=== PATIENT | male | born 1975 | race African-American/Black ===

== ENCOUNTER 2019-11-17 15:00 | Outpatient (CLI) | payer MEDICARE | END 2019-11-17 15:01 | disposition home or self-care (01) | LOC: DTY/OP 15:00 | PROVIDERS: ATTEND Family Medicine | DX: E11.9 Type 2 diabetes mellitus without complications (principal); I11.0 Hypertensive heart disease with heart failure; I50.20 Unspecified systolic (congestive) heart failure; D64.9 Anemia, unspecified; E78.5 Hyperlipidemia, unspecified; E66.01 Morbid (severe) obesity due to excess calories; E87.6 Hypokalemia; R73.03 Prediabetes; Z68.44 Body mass index [BMI] 60.0-69.9, adult; Z68.43 Body mass index [BMI] 50.0-59.9, adult | CPT/HCPCS: 97802 ==

== ENCOUNTER 2020-12-07 11:04 | Inpatient (IN) | payer MEDICARE ==
[2020-12-07] MEDS ORDERED: Nitroglycerin 2% Ointment 1 INCH/1 GM Packet ONE (11:26)
[2020-12-07] MEDS ORDERED: Furosemide 40 MG/4 ML VIAL ONE (11:26)
[2020-12-07 11:36] LABS: #Eosinphils 0.3 thou/uL (0.0-0.7); #Lymphocytes 1.6 thou/uL (1.20-3.40); #Monocytes 0.5 thou/uL (0.11-0.59); #Neutrophils 5.3 thou/uL (1.40-6.50); %Eosinophils 3.7 % (0.0-10.0); %Lymphocytes 20.8 % (21.0-51.0); %Monocytes 6.4 % (0.0-10.0); %Neutrophils 69.1 % (42.0-75.0); Hemoglobin 11.7 g/dL (14.0-18.0); Mean Corpuscular HGB CONC 30.5 g/dL (32.0-36.0); Mean Corpuscular Hemoglobin 24.5 pg (27.0-31.0); Mean Corpuscular Volume 80.2 fL (78.0-98.0); Mean Platelet Volume 8.5 fL (7.4-10.4); Platelet Count 304 thou/uL (130-400); RBC Distribution Width 14.8 % (11.5-14.5); Red Blood Cell (RBC) Count 4.78 mill/uL (4.70-6.10); White Blood Cell (WBC) Count 7.6 thou/uL (4.8-10.8)
[2020-12-07 12:04] LABS: ALT (SGPT) 9 U/L (8-55); AST (SGOT) 10 U/L (5-34); Albumin 3.7 g/dL (3.5-5.0); Alkaline Phosphatase 103 U/L (40-110); Anion Gap 14 mmol/L (10-20); BUN (Urea Nitrogen) 7 mg/dL (8.9-20.6); Bilirubin, Total 0.5 mg/dL (0.2-1.2); Calc. Creatinine Clearance 0 mL/min (70-130); Calcium 8.6 mg/dL (7.8-10.44); Carbon Dioxide 23 mmol/L (22-29); Chloride 105 mmol/L (98-107); Globulin 3.4 g/dL (2.4-3.5); Glucose 164 mg/dL (70-105); Potassium 3.7 mmol/L (3.5-5.1); Protein, Total 7.1 g/dL (6.0-8.3); Sodium 138 mmol/L (136-145)
[2020-12-07] MEDS ORDERED: Acetaminophen 325 MG TAB PO PRN (13:58)
[2020-12-07] MEDS ORDERED: Ondansetron ODT 4 MG TAB PO PRN (13:58)
[2020-12-07] MEDS ORDERED: Bisacodyl 5 MG TAB PO PRN (13:58)
[2020-12-07] MEDS ORDERED: HYDROcodone/Acetaminophen 5/325 mg Tablet PO PRN (13:58)
[2020-12-07] MEDS ORDERED: Enoxaparin Sodium 40 MG/0.4 ML SYRINGE SC SCH (14:00)
[2020-12-07] MEDS ORDERED: Dextrose 5% in Water 1,000 ML IV PRN (14:01)
[2020-12-07] MEDS ORDERED: HumaLOG 300 UNITS/3 ML VIAL SC PRN ×2 (14:01)
[2020-12-07] MEDS ORDERED: Dextrose 50% Abboject 50 ML SYRINGE SLOW IVP PRN (14:01)
[2020-12-07 14:37] LABS: Hemoglobin A1c 6.1 % (4.0-6.0)
[2020-12-07 14:49] LABS: Troponin I Less than 0.010 ng/mL (< 0.028)
[2020-12-07 18:05] LABS: Troponin I Less than 0.010 ng/mL (< 0.028)
[2020-12-07 19:24] VITALS: BMI 54.8
[2020-12-07] MEDS: Carvedilol 6.25 MG TAB PO SCH (21:05)
[2020-12-07] MEDS: Famotidine 20 MG TAB PO SCH (21:07)
[2020-12-08 05:31] LABS: #Eosinphils 0.2 thou/uL (0.0-0.7); #Lymphocytes 2.1 thou/uL (1.20-3.40); #Monocytes 0.5 thou/uL (0.11-0.59); %Basophils 0.3 % (0.0-1.0); %Eosinophils 2.8 % (0.0-10.0); %Lymphocytes 26.6 % (21.0-51.0); %Monocytes 6.5 % (0.0-10.0); %Neutrophils 63.9 % (42.0-75.0); Hemoglobin 11.8 g/dL (14.0-18.0); Mean Corpuscular HGB CONC 30.9 g/dL (32.0-36.0); Mean Corpuscular Hemoglobin 24.8 pg (27.0-31.0); Mean Corpuscular Volume 80.3 fL (78.0-98.0); Mean Platelet Volume 8.3 fL (7.4-10.4); Platelet Count 328 thou/uL (130-400); RBC Distribution Width 14.8 % (11.5-14.5); Red Blood Cell (RBC) Count 4.77 mill/uL (4.70-6.10); White Blood Cell (WBC) Count 7.9 thou/uL (4.8-10.8)
[2020-12-08 05:52] LABS: Anion Gap 15 mmol/L (10-20); BUN (Urea Nitrogen) 7 mg/dL (8.9-20.6); Calc. Creatinine Clearance 218 mL/min (70-130); Calcium 9.1 mg/dL (7.8-10.44); Carbon Dioxide 25 mmol/L (22-29); Cardiac Risk 3.1 (Less than 4.5); Chloride 103 mmol/L (98-107); Cholesterol 107 mg/dl (< 200 Desired); Glucose 124 mg/dL (70-105); HDL Cholesterol 34 mg/dL (>60 Neg Risk); LDL Cholesterol, Calculated 61 mg/dL; Potassium 3.5 mmol/L (3.5-5.1); Sodium 139 mmol/L (136-145); Triglycerides 58 mg/dL (Less than 150)
[2020-12-08] MEDS ORDERED: Labetalol HCl 100 MG/20 ML VIAL SLOW IVP PRN (06:16)
[2020-12-08] MEDS: hydrALAZINE 20 MG/ML VIAL SLOW IVP PRN ×2 (06:46→23:36)
[2020-12-08] MEDS ORDERED: Lisinopril 2.5 MG TAB PO SCH (09:00)
[2020-12-08] MEDS ORDERED: Furosemide 40 MG/4 ML VIAL SLOW IVP SCH (09:00)
[2020-12-08] MEDS: Aspirin 325 MG TAB PO SCH (09:17)
[2020-12-08] MEDS: Carvedilol 6.25 MG TAB PO SCH ×2 (09:18→20:48)
[2020-12-08] MEDS: busPIRone HCl 10 MG TAB PO SCH ×2 (09:18→20:48)
[2020-12-08] MEDS: hydrALAZINE 25 MG TAB PO SCH ×3 (09:19→20:49)
[2020-12-08] MEDS: Famotidine 20 MG TAB PO SCH ×2 (09:19→20:49)
[2020-12-08] MEDS: Enoxaparin Sodium 40 MG/0.4 ML SYRINGE SC SCH (09:19)
[2020-12-08] MEDS: Isosorbide Dinitrate 5 MG TAB PO SCH ×2 (09:20→20:49)
[2020-12-08] MEDS: Lisinopril 20 MG TAB PO SCH (09:20)
[2020-12-08] MEDS: metFORMIN 500 MG TAB PO SCH ×2 (09:21→20:50)
[2020-12-08] MEDS: Spironolactone 25 MG TAB PO SCH (09:21)
[2020-12-08] MEDS: Furosemide 40 MG/4 ML VIAL SLOW IVP SCH (14:28)
[2020-12-08] MEDS: Atorvastatin Calcium 20 MG TAB PO SCH (20:48)
[2020-12-09] MEDS ORDERED: hydrALAZINE 20 MG/ML VIAL SLOW IVP PRN (01:42)
[2020-12-09] MEDS ORDERED: hydrALAZINE 20 MG/ML VIAL SLOW IVP SCH (01:45)
[2020-12-09] MEDS: Labetalol HCl 100 MG/20 ML VIAL SLOW IVP PRN ×2 (04:34→21:43)
[2020-12-09 05:54] LABS: Anion Gap 15 mmol/L (10-20); BUN (Urea Nitrogen) 8 mg/dL (8.9-20.6); Calc. Creatinine Clearance 231 mL/min (70-130); Calcium 8.7 mg/dL (7.8-10.44); Carbon Dioxide 22 mmol/L (22-29); Chloride 104 mmol/L (98-107); Glucose 122 mg/dL (70-105); Potassium 3.4 mmol/L (3.5-5.1); Sodium 138 mmol/L (136-145)
[2020-12-09] MEDS: Furosemide 40 MG/4 ML VIAL SLOW IVP SCH (07:09)
[2020-12-09] MEDS: Carvedilol 25 MG TAB PO SCH ×2 (08:55→15:54)
[2020-12-09] MEDS: Famotidine 20 MG TAB PO SCH ×2 (08:55→21:40)
[2020-12-09] MEDS: Enoxaparin Sodium 40 MG/0.4 ML SYRINGE SC SCH (08:55)
[2020-12-09] MEDS: busPIRone HCl 10 MG TAB PO SCH ×2 (08:55→21:40)
[2020-12-09] MEDS: Aspirin 325 MG TAB PO SCH (08:55)
[2020-12-09] MEDS: Isosorbide Dinitrate 5 MG TAB PO SCH (08:56)
[2020-12-09] MEDS: Lisinopril 20 MG TAB PO SCH ×2 (08:56→21:41)
[2020-12-09] MEDS: hydrALAZINE 25 MG TAB PO SCH ×3 (08:56→21:40)
[2020-12-09] MEDS: Spironolactone 25 MG TAB PO SCH (08:57)
[2020-12-09] MEDS: metFORMIN 500 MG TAB PO SCH ×2 (08:57→21:41)
[2020-12-09] MEDS ORDERED: NIFEdipine XL 30 MG TAB PO SCH (11:04)
[2020-12-09] MEDS ORDERED: Isosorbide Dinitrate 20 MG TAB PO SCH (11:15)
[2020-12-09] MEDS ORDERED: Spironolactone 25 MG TAB PO SCH (14:00)
[2020-12-09] MEDS ORDERED: Ondansetron PF 4 MG/2 ML Vial IVP PRN (14:41)
[2020-12-09] MEDS: Furosemide 40 MG TAB PO SCH (15:53)
[2020-12-09] MEDS: Atorvastatin Calcium 20 MG TAB PO SCH (21:39)
[2020-12-09] MEDS: Isosorbide Dinitrate 20 MG TAB PO SCH (21:41)
[2020-12-10 05:16] LABS: #Eosinphils 0.2 thou/uL (0.0-0.7); #Lymphocytes 2.7 thou/uL (1.20-3.40); #Monocytes 0.7 thou/uL (0.11-0.59); #Neutrophils 5.1 thou/uL (1.40-6.50); %Basophils 0.4 % (0.0-1.0); %Eosinophils 1.9 % (0.0-10.0); %Lymphocytes 31.1 % (21.0-51.0); %Monocytes 8.2 % (0.0-10.0); %Neutrophils 58.4 % (42.0-75.0); Hemoglobin 11.5 g/dL (14.0-18.0); Mean Corpuscular HGB CONC 31.8 g/dL (32.0-36.0); Mean Corpuscular Hemoglobin 25.8 pg (27.0-31.0); Mean Corpuscular Volume 81.3 fL (78.0-98.0); Platelet Count 293 thou/uL (130-400); RBC Distribution Width 14.9 % (11.5-14.5); Red Blood Cell (RBC) Count 4.45 mill/uL (4.70-6.10); White Blood Cell (WBC) Count 8.7 thou/uL (4.8-10.8)
[2020-12-10 05:36] LABS: Anion Gap 10 mmol/L (10-20); BUN (Urea Nitrogen) 9 mg/dL (8.9-20.6); Calc. Creatinine Clearance 169 mL/min (70-130); Calcium 8.8 mg/dL (7.8-10.44); Carbon Dioxide 30 mmol/L (22-29); Chloride 101 mmol/L (98-107); Glucose 106 mg/dL (70-105); Potassium 3.5 mmol/L (3.5-5.1); Sodium 137 mmol/L (136-145)
[2020-12-10] MEDS ORDERED: NIFEdipine XL 60 MG TAB PO SCH ×3 (09:00→13:30)
[2020-12-10] MEDS: Carvedilol 25 MG TAB PO SCH ×2 (11:00→17:21)
[2020-12-10] MEDS: Spironolactone 25 MG TAB PO SCH (11:00)
[2020-12-10] MEDS: busPIRone HCl 10 MG TAB PO SCH ×2 (11:01→20:32)
[2020-12-10] MEDS: Aspirin 325 MG TAB PO SCH (11:01)
[2020-12-10] MEDS: Enoxaparin Sodium 40 MG/0.4 ML SYRINGE SC SCH (11:02)
[2020-12-10] MEDS: Famotidine 20 MG TAB PO SCH ×2 (11:02→20:32)
[2020-12-10] MEDS: Furosemide 40 MG TAB PO SCH ×2 (11:03→14:36)
[2020-12-10] MEDS: hydrALAZINE 25 MG TAB PO SCH ×3 (11:03→20:32)
[2020-12-10] MEDS: Isosorbide Dinitrate 20 MG TAB PO SCH ×2 (11:04→20:32)
[2020-12-10] MEDS: Lisinopril 20 MG TAB PO SCH (11:04)
[2020-12-10] MEDS: metFORMIN 500 MG TAB PO SCH ×2 (11:05→20:33)
[2020-12-10 11:15] LABS: Magnesium 1.9 mg/dL (1.6-2.6)
[2020-12-10] MEDS: Atorvastatin Calcium 20 MG TAB PO SCH (20:32)
[2020-12-11 05:14] LABS: #Eosinphils 0.3 thou/uL (0.0-0.7); #Lymphocytes 2.4 thou/uL (1.20-3.40); #Monocytes 0.6 thou/uL (0.11-0.59); %Basophils 0.2 % (0.0-1.0); %Eosinophils 3.3 % (0.0-10.0); %Lymphocytes 28.9 % (21.0-51.0); %Monocytes 7.2 % (0.0-10.0); %Neutrophils 60.4 % (42.0-75.0); Hemoglobin 12.1 g/dL (14.0-18.0); Mean Corpuscular HGB CONC 32.9 g/dL (32.0-36.0); Mean Corpuscular Hemoglobin 26.5 pg (27.0-31.0); Mean Corpuscular Volume 80.5 fL (78.0-98.0); Mean Platelet Volume 8.1 fL (7.4-10.4); Platelet Count 303 thou/uL (130-400); RBC Distribution Width 15.1 % (11.5-14.5); Red Blood Cell (RBC) Count 4.59 mill/uL (4.70-6.10); White Blood Cell (WBC) Count 8.3 thou/uL (4.8-10.8)
[2020-12-11 05:38] LABS: Anion Gap 15 mmol/L (10-20); BUN (Urea Nitrogen) 10 mg/dL (8.9-20.6); Calc. Creatinine Clearance 191 mL/min (70-130); Calcium 8.9 mg/dL (7.8-10.44); Carbon Dioxide 25 mmol/L (22-29); Chloride 100 mmol/L (98-107); Glucose 113 mg/dL (70-105); Potassium 3.6 mmol/L (3.5-5.1); Sodium 136 mmol/L (136-145)
[2020-12-11] MEDS: hydrALAZINE 25 MG TAB PO SCH (08:49)
[2020-12-11] MEDS: Aspirin 325 MG TAB PO SCH (08:49)
[2020-12-11] MEDS: Furosemide 40 MG TAB PO SCH (08:51)
[2020-12-11] MEDS: busPIRone HCl 10 MG TAB PO SCH (08:52)
[2020-12-11] MEDS: Carvedilol 25 MG TAB PO SCH (08:52)
[2020-12-11] MEDS: Isosorbide Dinitrate 20 MG TAB PO SCH (08:52)
[2020-12-11] MEDS: Spironolactone 25 MG TAB PO SCH (08:52)
[2020-12-11] MEDS: metFORMIN 500 MG TAB PO SCH (08:52)
[2020-12-11] MEDS: Enoxaparin Sodium 40 MG/0.4 ML SYRINGE SC SCH (08:53)
[2020-12-11] MEDS ORDERED: NIFEdipine XL 60 MG TAB PO SCH (09:00)
[2020-12-11] MEDS ORDERED: Lisinopril 20 MG TAB PO SCH (09:00)
[2020-12-11 13:15] VITALS: BP 131/75; TEMP 98.4
== END 2020-12-11 13:41 | disposition home or self-care (01) | DRG 292 ==
LOC: SUATTDRO 11:04 → ERS 11:04 → 2SW 13:48 → OBSVTOIN 12-08 07:20
PROVIDERS: ADMIT Family Medicine; ATTEND Hospitalist
DX: I11.0 Hypertensive heart disease with heart failure (principal); Z68.43 Body mass index [BMI] 50.0-59.9, adult; I47.2 Ventricular tachycardia; N17.9 Acute kidney failure, unspecified; I16.0 Hypertensive urgency; I50.43 Acute on chronic combined systolic (congestive) and diastolic (congestive) heart failure; I42.8 Other cardiomyopathies; K21.9 Gastro-esophageal reflux disease without esophagitis; F41.9 Anxiety disorder, unspecified; E88.81 Metabolic syndrome and other insulin resistance; F17.210 Nicotine dependence, cigarettes, uncomplicated; E66.01 Morbid (severe) obesity due to excess calories; E11.9 Type 2 diabetes mellitus without complications; Z79.82 Long term (current) use of aspirin; Z79.899 Other long term (current) drug therapy; Z79.84 Long term (current) use of oral hypoglycemic drugs
CPT/HCPCS: 36415; 36416; 71045; 80048; 80053; 80061; 83036; 83735; 83880; 84443; 84484; 85025; 93005; 93306; 96374; 96375; G0378; J0360; J1650; J1940; J2405

== ENCOUNTER 2021-04-30 04:33 | Emergency (ER) | payer MEDICARE ==
[2021-04-30] MEDS ORDERED: cloNIDine 0.1 MG TAB ONE (04:52)
[2021-04-30 05:39] LABS: #Eosinphils 0.2 thou/uL (0.0-0.7); #Lymphocytes 1.9 thou/uL (1.20-3.40); #Monocytes 0.4 thou/uL (0.11-0.59); #Neutrophils 4.2 thou/uL (1.40-6.50); %Basophils 0.5 % (0.0-1.0); %Eosinophils 3.3 % (0.0-10.0); %Lymphocytes 27.8 % (21.0-51.0); %Monocytes 6.5 % (0.0-10.0); %Neutrophils 61.9 % (42.0-75.0); Mean Corpuscular HGB CONC 32.5 g/dL (32.0-36.0); Mean Corpuscular Volume 82.9 fL (78.0-98.0); Platelet Count 343 thou/uL (130-400); RBC Distribution Width 14.6 % (11.5-14.5); Red Blood Cell (RBC) Count 4.83 mill/uL (4.70-6.10); White Blood Cell (WBC) Count 6.7 thou/uL (4.8-10.8)
[2021-04-30] MEDS ORDERED: Furosemide 40 MG TAB ONE (06:00)
[2021-04-30 06:03] LABS: ALT (SGPT) 12 U/L (8-55); AST (SGOT) 12 U/L (5-34); Albumin 3.9 g/dL (3.5-5.0); Alkaline Phosphatase 98 U/L (40-110); Anion Gap 12 mmol/L (10-20); BUN (Urea Nitrogen) 6 mg/dL (8.9-20.6); Bilirubin, Total 0.3 mg/dL (0.2-1.2); Calc. Creatinine Clearance 0 mL/min (70-130); Calcium 8.9 mg/dL (7.8-10.44); Carbon Dioxide 27 mmol/L (22-29); Chloride 102 mmol/L (98-107); Glucose 164 mg/dL (70-105); Potassium 3.8 mmol/L (3.5-5.1); Protein, Total 7.9 g/dL (6.0-8.3); Sodium 137 mmol/L (136-145)
[2021-04-30] MEDS ORDERED: Carvedilol 25 MG TAB PO SCH (06:15)
[2021-04-30] MEDS ORDERED: Lidocaine Viscous Sol 2% 15 ml UD Cup ONE (06:17)
[2021-04-30] MEDS ORDERED: Magnesium 2 GM/50 ML BAG (IN WATER) ONE (06:17)
== END 2021-04-30 07:03 | disposition home or self-care (01) ==
LOC: ERS 04:33
DX: I11.0 Hypertensive heart disease with heart failure (principal); F43.9 Reaction to severe stress, unspecified; R06.00 Dyspnea, unspecified; I50.9 Heart failure, unspecified; K21.9 Gastro-esophageal reflux disease without esophagitis; Z87.891 Personal history of nicotine dependence
CPT/HCPCS: 36415; 71045; 80053; 83690; 83880; 84484; 85025; 93005; J3475

== ENCOUNTER 2022-03-15 14:37 | Outpatient (CLI) | payer OTHER, MEDICARE | END 2022-03-15 14:38 | disposition home or self-care (01) | LOC: BICRAD 14:37 | PROVIDERS: ATTEND Internal Medicine | DX: M25.572 Pain in left ankle and joints of left foot (principal); M79.672 Pain in left foot; M79.89 Other specified soft tissue disorders ==

== ENCOUNTER 2022-03-19 13:50 | Emergency (ER) | payer MEDICARE, OTHER | END 2022-03-19 15:45 | disposition home or self-care (01) | LOC: ERS 13:50 | DX: M25.572 Pain in left ankle and joints of left foot (principal); I11.0 Hypertensive heart disease with heart failure; I50.9 Heart failure, unspecified; Z87.891 Personal history of nicotine dependence; Z79.899 Other long term (current) drug therapy | CPT/HCPCS: 99283 ==

== ENCOUNTER 2022-04-15 16:42 | Emergency (ER) | payer OTHER | END 2022-04-15 18:13 | disposition home or self-care (01) | LOC: ERS 16:42 | DX: M25.472 Effusion, left ankle (principal); I11.0 Hypertensive heart disease with heart failure; I50.9 Heart failure, unspecified; E66.9 Obesity, unspecified; K21.9 Gastro-esophageal reflux disease without esophagitis; Z87.891 Personal history of nicotine dependence ==

== ENCOUNTER 2022-05-02 14:40 | Emergency (ER) | payer OTHER ==
[2022-05-02] MEDS ORDERED: Indomethacin 25 mg Capsule PO SCH (16:30)
[2022-05-02] MEDS ORDERED: predniSONE 20 MG TAB ONE (16:37)
== END 2022-05-02 16:48 | disposition home or self-care (01) ==
LOC: ERS 14:40
DX: M02.341 Reiter's disease, right hand (principal); K21.9 Gastro-esophageal reflux disease without esophagitis; I11.0 Hypertensive heart disease with heart failure; I50.9 Heart failure, unspecified; E66.9 Obesity, unspecified
CPT/HCPCS: J7512

== ENCOUNTER 2023-03-09 21:00 | Emergency (ER) | payer MEDICAID, MEDICARE ==
[2023-03-09 21:31] LABS: #Eosinphils 0.3 thou/uL (0.0-0.7); #Monocytes 0.6 thou/uL (0.11-0.59); #Neutrophils 6.1 thou/uL (1.40-6.50); %Basophils 0.3 % (0.0-1.0); %Eosinophils 3.2 % (0.0-10.0); %Lymphocytes 20.2 % (21.0-51.0); %Monocytes 6.5 % (0.0-10.0); %Neutrophils 69.7 % (42.0-75.0); Hemoglobin 11.6 g/dL (14.0-18.0); Mean Corpuscular HGB CONC 32.2 g/dL (32.0-36.0); Mean Corpuscular Hemoglobin 26.5 pg (27.0-31.0); Mean Corpuscular Volume 82.2 fl (78.0-98.0); Mean Platelet Volume 9.5 fL (7.4-10.4); Platelet Count 292 10x3/uL (130-400); RBC Distribution Width 15.2 % (11.5-14.5); Red Blood Cell (RBC) Count 4.38 mill/uL (4.70-6.10); White Blood Cell (WBC) Count 8.8 10x3/uL (4.8-10.8)
[2023-03-09 21:56] LABS: ALT (SGPT) 15 U/L (8-55); AST (SGOT) 14 U/L (5-34); Albumin 3.7 g/dL (3.5-5.0); Alkaline Phosphatase 99 U/L (40-110); Anion Gap 11 mmol/L (10-20); BUN (Urea Nitrogen) 9 mg/dL (8.9-20.6); Bilirubin, Total 0.2 mg/dL (0.2-1.2); Calc. Creatinine Clearance 0 mL/min (70-130); Calcium 9.2 mg/dL (7.8-10.44); Carbon Dioxide 27 mmol/L (22-29); Chloride 101 mmol/L (98-107); Estimated GFR 65; Globulin 3.9 g/dL (2.4-3.5); Glucose 131 mg/dL (70-105); Potassium 3.4 mmol/L (3.5-5.1); Protein, Total 7.6 g/dL (6.0-8.3); Sodium 136 mmol/L (136-145)
[2023-03-09 22:01] LABS: Troponin I Less than 0.010 ng/mL (< 0.028)
== END 2023-03-09 22:14 | disposition home or self-care (01) ==
LOC: ERS 21:00
DX: R06.00 Dyspnea, unspecified (principal); I11.0 Hypertensive heart disease with heart failure; I50.9 Heart failure, unspecified; K21.9 Gastro-esophageal reflux disease without esophagitis; E66.9 Obesity, unspecified; Z87.891 Personal history of nicotine dependence
CPT/HCPCS: 36415; 71045; 80053; 83880; 84484; 85025; 93005; 94760

== ENCOUNTER 2023-06-03 17:34 | Emergency (ER) | payer MEDICARE ==
[2023-06-03] MEDS ORDERED: Acetaminophen 500 MG TAB ONE (18:00)
[2023-06-03 18:40] LABS: Bacteria/HPF None Seen HPF (None Seen); Bilirubin Negative (Negative); Blood, Urine Negative (Negative); CAUTI Indications for Culture Pelvic or flank pain; Clarity Clear (Clear); Glucose, Urine (Dipstick) Normal (Negative); Ketone, Urine Negative (Negative); Leukocyte 25 Leu/uL (Negative); Nitrite Negative (Negative); Protein, Urine (Dipstick) Negative (Neg-Trace); RBC/HPF 0-3 HPF (0-3); Specific Gravity, Urine 1.019 (1.002-1.036); Squamous Epithelial 0-3 HPF (0-3); Urobilinogen Normal mg/dL (Less than 2); pH, Urine 5.5 (5.0-9.0)
[2023-06-03 18:43] LABS: Urine Culture Reflex No No
== END 2023-06-03 21:38 | disposition home or self-care (01) ==
LOC: ERS 17:34
DX: M54.50 Low back pain, unspecified (principal); N20.0 Calculus of kidney; I11.0 Hypertensive heart disease with heart failure; I50.9 Heart failure, unspecified; Z87.891 Personal history of nicotine dependence; Z79.82 Long term (current) use of aspirin; Z79.899 Other long term (current) drug therapy
CPT/HCPCS: 74176; 81001; 87086; 99283

== ENCOUNTER 2023-10-30 10:00 | Emergency (ER) | payer MEDICAID, MEDICARE, SELFPAY ==
[2023-10-30] MEDS ORDERED: Acetaminophen 500 MG TAB ONE (12:16)
[2023-10-30] MEDS ORDERED: Ibuprofen 800 MG TAB ONE (12:16)
[2023-10-30] MEDS ORDERED: Cyclobenzaprine 10 MG TAB ONE (12:16)
[2023-10-30 12:20] LABS: Bacteria/HPF None Seen HPF (None Seen); Bilirubin Negative (Negative); Blood, Urine Negative (Negative); CAUTI Indications for Culture Pelvic or flank pain; Clarity Clear (Clear); Glucose, Urine (Dipstick) Normal (Negative); Ketone, Urine Negative (Negative); Leukocyte Negative Leu/uL (Negative); Nitrite Negative (Negative); Protein, Urine (Dipstick) Negative (Neg-Trace); RBC/HPF None Seen HPF (0-3); Specific Gravity, Urine 1.013 (1.002-1.036); Squamous Epithelial 0-3 HPF (0-3); Urobilinogen Normal mg/dL (Less than 2); WBC/HPF 0-3 HPF (0-3)
[2023-10-30 12:25] LABS: Urine Culture Reflex No No
== END 2023-10-30 12:58 | disposition home or self-care (01) ==
LOC: ERS 10:00
DX: M54.50 Low back pain, unspecified (principal); I11.0 Hypertensive heart disease with heart failure; I50.9 Heart failure, unspecified; E66.01 Morbid (severe) obesity due to excess calories; E78.5 Hyperlipidemia, unspecified; K21.9 Gastro-esophageal reflux disease without esophagitis; E11.9 Type 2 diabetes mellitus without complications; Z87.891 Personal history of nicotine dependence; Z55.6 Problems related to health literacy
CPT/HCPCS: 81001; 99283

== ENCOUNTER 2025-01-29 02:38 | Emergency (ER) | payer OTHER, MEDICAID ==
[2025-01-29 03:56] LABS: #Basophils 0.03 10x3/uL (0.0-0.2); #Eosinophils 0.20 10x3/uL (0.0-0.7); #Monocytes 0.58 10x3/uL (0.11-0.59); #Neutrophils 2.94 10x3/uL (1.40-6.50); %Basophils 0.5 % (0.0-1.0); %Eosinophils 3.7 % (0.0-10.0); %Lymphocytes 31.0 % (21.0-51.0); %Monocytes 10.6 % (0.0-10.0); %Neutrophils 53.8 % (42.0-75.0); Hematocrit 39.7 % (42.0-52.0); Hemoglobin 12.7 g/dL (14.0-18.0); Mean Corpuscular Hemoglobin 26.3 pg (27.0-31.0); Mean Corpuscular Volume 82.2 fL (78.0-98.0); Platelet Count 276 10x3/uL (130-400); Red Blood Cell (RBC) Count 4.83 mill/uL (4.70-6.10); White Blood Cell (WBC) Count 5.46 10x3/uL (4.8-10.8)
[2025-01-29 04:24] LABS: ALT (SGPT) Less than 7 U/L (Less than 45); AST (SGOT) 15 U/L (11-34); Albumin 3.4 g/dL (3.1-4.5); Alkaline Phosphatase 90 U/L (40-110); Anion Gap 13 mmol/L (10-20); BUN (Urea Nitrogen) 11 mg/dL (8.9-20.6); Bilirubin, Total 0.3 mg/dL (0.3-1.2); Calc. Creatinine Clearance 0 mL/min (70-130); Calcium 8.6 mg/dL (7.8-10.44); Carbon Dioxide 24 mmol/L (22-29); Chloride 105 mmol/L (98-107); Globulin 4.5 g/dL (2.4-3.5); Glucose 122 mg/dL (70-105); Magnesium 2.0 mg/dL (1.6-2.6); Potassium 3.4 mmol/L (3.5-5.1); Sodium 139 mmol/L (136-145)
[2025-01-29] MEDS ORDERED: Furosemide 20 MG (2 mL) VIAL ONE (05:48)
== END 2025-01-29 06:00 | disposition home or self-care (01) ==
LOC: ERS 02:38
DX: R60.0 Localized edema (principal); E11.9 Type 2 diabetes mellitus without complications; I11.0 Hypertensive heart disease with heart failure; I50.9 Heart failure, unspecified; Z87.891 Personal history of nicotine dependence
CPT/HCPCS: 71045; 80053; 83735; 83880; 84484; 85025; 93005; 93970; J1940; 96374

== ENCOUNTER 2025-04-19 23:14 | Observation (INO) | payer MEDICAID, OTHER ==
[2025-04-19 23:43] LABS: #Basophils 0.04 10x3/uL (0.0-0.2); #Eosinophils 0.29 10x3/uL (0.0-0.7); #Monocytes 0.39 10x3/uL (0.11-0.59); #Neutrophils 2.87 10x3/uL (1.40-6.50); %Basophils 0.7 % (0.0-1.0); %Eosinophils 5.0 % (0.0-10.0); %Lymphocytes 37.4 % (21.0-51.0); %Monocytes 6.8 % (0.0-10.0); %Neutrophils 49.8 % (42.0-75.0); Hematocrit 40.5 % (42.0-52.0); Hemoglobin 12.9 g/dL (14.0-18.0); Mean Corpuscular Hemoglobin 25.9 pg (27.0-31.0); Mean Corpuscular Volume 81.3 fL (78.0-98.0); Platelet Count 282 10x3/uL (130-400); Red Blood Cell (RBC) Count 4.98 mill/uL (4.70-6.10); White Blood Cell (WBC) Count 5.77 10x3/uL (4.8-10.8)
[2025-04-19 23:56] LABS: ALT (SGPT) Less than 7 U/L (Less than 45); AST (SGOT) 14 U/L (11-34); Albumin 3.3 g/dL (3.1-4.5); Alkaline Phosphatase 83 U/L (40-110); Anion Gap 13 mmol/L (10-20); BUN (Urea Nitrogen) 9 mg/dL (8.9-20.6); Bilirubin, Total 0.3 mg/dL (0.3-1.2); Calc. Creatinine Clearance 0 mL/min (70-130); Calcium 8.6 mg/dL (7.8-10.44); Carbon Dioxide 25 mmol/L (22-29); Chloride 105 mmol/L (98-107); Globulin 4.2 g/dL (2.4-3.5); Glucose 93 mg/dL (70-105); Potassium 3.6 mmol/L (3.5-5.1); Sodium 139 mmol/L (136-145)
[2025-04-20] MEDS ORDERED: Dextrose 50% Abboject 50 ML SYRINGE SLOW IVP PRN (02:17)
[2025-04-20] MEDS ORDERED: Glucagon 1 MG/ML KIT IM PRN (02:17)
[2025-04-20] MEDS ORDERED: Acetaminophen 325 MG TAB PO PRN (02:18)
[2025-04-20] MEDS ORDERED: Ondansetron PF 4 MG/2 ML Vial IVP PRN (02:18)
[2025-04-20] MEDS ORDERED: Guaifenesin DM 100-10/5 ML UDCUP PO PRN (02:18)
[2025-04-20 03:18] VITALS: BMI 49.4
[2025-04-20 06:29] LABS: #Basophils 0.04 10x3/uL (0.0-0.2); #Eosinophils 0.33 10x3/uL (0.0-0.7); #Monocytes 0.49 10x3/uL (0.11-0.59); #Neutrophils 2.75 10x3/uL (1.40-6.50); %Basophils 0.7 % (0.0-1.0); %Eosinophils 5.7 % (0.0-10.0); %Lymphocytes 36.9 % (21.0-51.0); %Monocytes 8.5 % (0.0-10.0); %Neutrophils 48.0 % (42.0-75.0); Hematocrit 37.5 % (42.0-52.0); Hemoglobin 11.8 g/dL (14.0-18.0); Mean Corpuscular Hemoglobin 26.0 pg (27.0-31.0); Mean Corpuscular Volume 82.8 fL (78.0-98.0); Platelet Count 282 10x3/uL (130-400); Red Blood Cell (RBC) Count 4.53 mill/uL (4.70-6.10); White Blood Cell (WBC) Count 5.74 10x3/uL (4.8-10.8)
[2025-04-20 06:38] LABS: Anion Gap 14 mmol/L (10-20); BUN (Urea Nitrogen) 7 mg/dL (8.9-20.6); Calc. Creatinine Clearance 213 mL/min (70-130); Calcium 8.1 mg/dL (7.8-10.44); Carbon Dioxide 23 mmol/L (22-29); Cardiac Risk 3.3 (Less than 4.5); Chloride 105 mmol/L (98-107); Cholesterol 135 mg/dl (< 200 Desired); Glucose 81 mg/dL (70-105); HDL Cholesterol 41 mg/dL (>60 Neg Risk); LDL Cholesterol, Calculated 86 mg/dL; Potassium 3.9 mmol/L (3.5-5.1); Sodium 138 mmol/L (136-145); Triglycerides 41 mg/dL (Less than 150)
[2025-04-20] MEDS ORDERED: Carvedilol 25 MG TAB ONE (08:30)
[2025-04-20] MEDS: Carvedilol 25 MG TAB PO SCH (08:32)
[2025-04-20] MEDS ORDERED: Furosemide 40 MG (4 mL) VIAL ONE (09:04)
[2025-04-20] MEDS: Aspirin 325 MG TAB PO SCH (10:25)
[2025-04-20] MEDS: NIFEdipine XL 90 MG ER.TAB PO SCH (10:25)
[2025-04-20] MEDS: Enoxaparin 40 MG (0.4 mL) SYRINGE SC SCH (10:26)
[2025-04-20] MEDS: Furosemide 20 MG TAB PO SCH (10:26)
[2025-04-20] MEDS ORDERED: Iopamidol-370 76% 500 ML MDV (1 ML CHARGE) ONE (10:35)
[2025-04-20] MEDS: Lisinopril 20 MG TAB PO SCH (12:33)
[2025-04-20] MEDS: Spironolactone 25 MG TAB PO SCH (12:33)
[2025-04-21 05:26] LABS: Anion Gap 12 mmol/L (10-20); BUN (Urea Nitrogen) 8 mg/dL (8.9-20.6); Calc. Creatinine Clearance 187 mL/min (70-130); Calcium 8.5 mg/dL (7.8-10.44); Carbon Dioxide 26 mmol/L (22-29); Chloride 106 mmol/L (98-107); Glucose 81 mg/dL (70-105); Magnesium 2.0 mg/dL (1.6-2.6); Potassium 3.8 mmol/L (3.5-5.1); Sodium 140 mmol/L (136-145)
[2025-04-21 12:13] VITALS: BP 135/73; TEMP 98.6
== END 2025-04-21 14:50 | disposition home or self-care (01) ==
LOC: ERS 23:14 → ERHOLD 04-20 01:45 → OBS 04-20 10:06
PROVIDERS: ADMIT Internal Medicine; ATTEND Hospitalist
DX: R42 Dizziness and giddiness (principal); I11.0 Hypertensive heart disease with heart failure; I50.32 Chronic diastolic (congestive) heart failure; I42.9 Cardiomyopathy, unspecified; E11.9 Type 2 diabetes mellitus without complications; E66.01 Morbid (severe) obesity due to excess calories; Z68.42 Body mass index [BMI] 45.0-49.9, adult; Z87.891 Personal history of nicotine dependence; Z79.82 Long term (current) use of aspirin; Z79.84 Long term (current) use of oral hypoglycemic drugs; Z79.899 Other long term (current) drug therapy
CPT/HCPCS: 70496; 70498; 70551; 80048 ×2; 80053; 80061; 82962 ×2; 83735; 83880; 84484; 85025 ×2; 93005; J1650 ×2; 36415; 36416; 96372; G0378; J1940; Q9967